=== PATIENT | male | born 1965 | race Caucasian/White ===

== ENCOUNTER 2016-11-21 09:58 | Inpatient (IN) | payer SELFPAY ==
--- NOTE | 2016-11-22 13:14 | CPEKG ---
Heart Rate: 67 RR Interval: 896 QRSD Interval: 88 QT Interval: 384 QTC Interval: 406 QRS [place]: 98 T Wave [place]: 25 EKG Severity - ABNORMAL ECG - EKG Impression: ATRIAL FIBRILLATION, V-RATE 63-75 EKG Impression: BORDERLINE RIGHT AXIS DEVIATION EKG Impression: ATRIAL FIBRILLATION IS NEW IN COMPARISON TO PRIOR ECG Electronically Signed By: Eddie Heard 25-Nov-2016 08:53:00
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
[2016-11-22 13:50] LABS: INR 1.4 (0.83-1.16); PROTIME(PATIENT) 17.1 SEC (12.0-15.0)
[2016-11-22 13:51] LABS: APTT 41.6 SEC (23.0-38.0)
[2016-11-22 13:52] LABS: ANION GAP 8 mEq/L (8-16); CALCIUM 9.1 mg/dL (8.5-10.4); CARBON DIOXIDE 24 mEq/l (22-31); CHLORIDE 106 mEq/L (97-110); GLOMERULAR FILTRATION RATE > 60; GLUCOSE 83 mg/dL (70-100); MAGNESIUM 1.9 mg/dL (1.6-2.3); SODIUM 138 mEq/L (134-144)
[2016-11-22] MEDS: SOTALOL HCL 80 MG TAB PO SCH (14:02)
[2016-11-22 14:06] LABS: % IMMATURE GRANULYOCYTES 0.4 % (0.0-1.1); ABSOLUTE IMMATURE GRANULOCYTES 0.03 10^3/uL (0.00-0.10); ADD DIFF? NO; ADD MORPH? NO; ADD SCAN? NO; ATYPICAL LYMPHOCYTE FLAG 10 (0-99); FRAGMENT RBC FLAG 0 (0-99); HEMATOCRIT 43.7 % (40.0-51.0); HEMOGLOBIN 16.3 g/dL (13.7-17.5); LEFT SHIFT FLG 0 (0-99); LIPEMIA HEMOLYSIS FLAG 90 (0-99); MEAN CELL HEMOGLOBIN 33.1 pg (27.9-34.1); MEAN CELL HEMOGLOBIN CONCENTR. 37.3 g/dL (32.4-36.7); MEAN CELL VOLUME 88.6 fL (81.5-99.8); MEAN PLATELET VOLUME 9.9 fL (8.7-11.7); PLATELET CLUMPS FLAG 20 (0-99); PLATELET COUNT 211 10^3/uL (150-400); RED BLOOD CELL COUNT 4.93 10^6/uL (4.40-6.38); RED CELL DISTRIBUTION WIDTH 11.8 % (11.5-15.2)
--- NOTE | 2016-11-22 16:03 | CPEKG ---
Heart Rate: 79 RR Interval: 759 QRSD Interval: 86 QT Interval: 388 QTC Interval: 445 QRS [place]: 91 T Wave [place]: -5 EKG Severity - ABNORMAL ECG - EKG Impression: ATRIAL FIBRILLATION, V-RATE 64-92 EKG Impression: BORDERLINE RIGHT AXIS DEVIATION EKG Impression: BORDERLINE T ABNORMALITIES, INFERIOR LEADS Electronically Signed By: Eddie Heard 25-Nov-2016 08:53:31
[2016-11-22] MEDS: DABIGATRAN ETEXILATE MESYL 150 MG CAP PO SCH (19:57)
[2016-11-22] MEDS: LORazepam 1 MG TAB PO PRN (20:56)
[2016-11-23] MEDS ORDERED: SOTALOL HCL 80 MG TAB PO ONE ×2 (00:01→20:00)
--- NOTE | 2016-11-23 02:02 | CPEKG ---
Heart Rate: 60 RR Interval: 1000 QRSD Interval: 84 QT Interval: 392 QTC Interval: 392 QRS [place]: 89 T Wave [place]: 34 EKG Severity - ABNORMAL ECG - EKG Impression: ATRIAL FIBRILLATION, V-RATE 48-82 Electronically Signed By: Eddie Heard 25-Nov-2016 08:53:25
[2016-11-23 05:00] LABS: INR 1.29 (0.83-1.16); PROTIME(PATIENT) 16.1 SEC (12.0-15.0)
[2016-11-23 05:01] LABS: APTT 40.4 SEC (23.0-38.0)
[2016-11-23 05:18] LABS: ANION GAP 6 mEq/L (8-16); CALCIUM 9.6 mg/dL (8.5-10.4); CARBON DIOXIDE 28 mEq/l (22-31); CHLORIDE 105 mEq/L (97-110); CREATININE 1.1 mg/dL (0.7-1.3); GLOMERULAR FILTRATION RATE > 60; GLUCOSE 78 mg/dL (70-100); MAGNESIUM 2.1 mg/dL (1.6-2.3); POTASSIUM 4.4 mEq/L (3.5-5.2); SODIUM 139 mEq/L (134-144)
[2016-11-23] MEDS ORDERED: ATROPINE SULFATE 1 MG/10 ML SYR IVP ONE (06:00)
[2016-11-23] MEDS ORDERED: FLU VACC QS 2017-18 (3YR+)/PF 0.5 ML SYR (FLUARIX QUAD) IM ONE (07:56)
--- NOTE | 2016-11-23 08:56 | CPEKG ---
Heart Rate: 65 RR Interval: 923 QRSD Interval: 86 QT Interval: 416 QTC Interval: 433 QRS [place]: 92 T Wave [place]: 72 EKG Severity - ABNORMAL ECG - EKG Impression: ATRIAL FIBRILLATION, V-RATE 52-79 EKG Impression: BORDERLINE RIGHT AXIS DEVIATION Electronically Signed By: Eddie Heard 25-Nov-2016 08:53:18
[2016-11-23] MEDS: OMEGA-3 FATTY ACIDS 1,000 MG CAP PO SCH (09:35)
[2016-11-23] MEDS: DABIGATRAN ETEXILATE MESYL 150 MG CAP PO SCH ×2 (09:35→19:56)
[2016-11-23] MEDS: SOTALOL HCL 80 MG TAB PO SCH (09:36)
[2016-11-23] MEDS ORDERED: SUCCINYLCHOLINE CHLORIDE*ANESTHESIA ONLY*200 MG/10 ML SYR IVP ONE (12:10)
[2016-11-23] MEDS ORDERED: LIDOCAINE 2% 100 MG/5 ML SYR ONE (12:10)
[2016-11-23] MEDS ORDERED: PROPOFOL 200 MG/20 ML VIAL ONE (12:10)
--- NOTE | 2016-11-23 12:26 | CPEKG ---
Heart Rate: 77 RR Interval: 779 QRSD Interval: 84 QT Interval: 428 QTC Interval: 485 QRS [place]: 84 T Wave [place]: 7 EKG Severity - ABNORMAL ECG - EKG Impression: ATRIAL FIBRILLATION, V-RATE 59-109 EKG Impression: BORDERLINE PROLONGED QT INTERVAL Electronically Signed By: Ann Hernandez 24-Nov-2016 06:50:46
[2016-11-23] MEDS ORDERED: NALOXONE HCL 0.4 MG/ML INJ IVP PRN (12:28)
[2016-11-23] MEDS ORDERED: fentaNYL 100 MCG/2 ML INJ IVP PRN (12:28)
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
--- NOTE | 2016-11-23 12:29 | POSTANESTH ---
Post Anesthetic Evaluation Cardiovascular Status: Normal, Stable Respiratory Status: Normal, Stable Level of Consciousness/Mental Status: Can Participate in Eval Pain Control: Adequate, Prn Tx Ordered Nausea/Vomiting Control: Adequate, Prn Tx Ordered Complications Possibly Related to Anesthesia: None Noted (still in a-fib will repeat CV tomorrow)
--- NOTE | 2016-11-23 13:04 | EPPROC ---
Electrophysiology Procedure Note: Procedure: CV Indicaiton: Symptomatic AF Procedure: Pt sedated by anesthesiologist. Once sedated 200J of synchronized DCCV given. Pt did not convert. Patch repositioned. 200J of synchronized DCCV given. Pt converted to SR. Within 3 min he converted to AF Conclusion: Successful CV but pt went back into AF in three min. Patient Problems: Problems Problem Status Onset Atrial fibrillation Acute Fracture of rib of left side Acute
--- NOTE | 2016-11-23 15:37 | ASMTCASEMG ---
Living Arrangements What is your living Answers: With Spouse arrangement? Who do you live with? Type Of Residence What kind of residence do Answers: House you live in? Discharge Plan Comments Coordination Status Comments Notes: Chart reviewed and spoke w/ CASSIE [place]. Pt is a 51 y/o man admitted for AFIB and sotalol loading. Pt will most likely d/c independent when he is medically stable. No therapies ordered at this time. CM available for changes. Date Signed: 11/23/2016 03:36 PM Electronically Signed By:ABDIAZIZ Hu
[2016-11-23] MEDS: LORazepam 1 MG TAB PO PRN (21:27)
--- NOTE | 2016-11-24 00:23 | CPEKG ---
Heart Rate: 92 RR Interval: 652 QRSD Interval: 86 QT Interval: 400 QTC Interval: 495 QRS [place]: 80 T Wave [place]: 9 EKG Severity - ABNORMAL ECG - EKG Impression: ATRIAL FIBRILLATION, V-RATE 68-120 EKG Impression: BORDERLINE PROLONGED QT INTERVAL Electronically Signed By: Eddie Heard 25-Nov-2016 08:53:12
[2016-11-24] MEDS ORDERED: SOTALOL HCL 80 MG TAB PO ONE (04:00)
[2016-11-24 05:04] VITALS: O2SAT 96
[2016-11-24] MEDS ORDERED: SOTALOL HCL 80 MG TAB ONE (06:09)
--- NOTE | 2016-11-24 07:44 | CPEKG ---
Heart Rate: 69 RR Interval: 870 QRSD Interval: 84 QT Interval: 424 QTC Interval: 455 QRS [place]: 94 T Wave [place]: 18 EKG Severity - ABNORMAL ECG - EKG Impression: ATRIAL FIBRILLATION, V-RATE 50-82 EKG Impression: BORDERLINE RIGHT AXIS DEVIATION Electronically Signed By: Eddie Heard 25-Nov-2016 08:53:07
[2016-11-24] MEDS: DABIGATRAN ETEXILATE MESYL 150 MG CAP PO SCH (07:51)
[2016-11-24] MEDS ORDERED: PROPOFOL 200 MG/20 ML VIAL ONE ×2 (07:57)
[2016-11-24] MEDS ORDERED: SUCCINYLCHOLINE CHLORIDE*ANESTHESIA ONLY*200 MG/10 ML SYR IVP ONE (07:57)
[2016-11-24] MEDS ORDERED: LIDOCAINE 2% 100 MG/5 ML SYR ONE (07:57)
[2016-11-24 07:59] VITALS: BP 99/66; PULSE 71; RESP 13; TEMP 98.7
[2016-11-24] MEDS ORDERED: NS 500 ML IV ONE (08:00)
[2016-11-24] MEDS ORDERED: ATROPINE SULFATE 1 MG/10 ML SYR IVP ONE (08:00)
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
--- NOTE | 2016-11-24 08:23 | POSTANESTH ---
Post Anesthetic Evaluation Cardiovascular Status: Normal, Stable Respiratory Status: Normal, Stable Level of Consciousness/Mental Status: Can Participate in Eval Pain Control: Adequate, Prn Tx Ordered Nausea/Vomiting Control: Adequate, Prn Tx Ordered Complications Possibly Related to Anesthesia: None Noted
[2016-11-24] MEDS ORDERED: fentaNYL 100 MCG/2 ML INJ IVP PRN (08:24)
[2016-11-24] MEDS ORDERED: NALOXONE HCL 0.4 MG/ML INJ IVP PRN (08:24)
[2016-11-24] MEDS: OMEGA-3 FATTY ACIDS 1,000 MG CAP PO SCH (09:59)
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
--- NOTE | 2016-11-25 12:34 | ASDISCHSUM ---
Discharge Information Plan Status:Home with No Needs Medically Cleared to Leave:11/24/2016 Discharge Date:11/24/2016 09:57 AM CM D/C Disposition: ADT D/C Disposition:Home, Routine, Self-Care Projected Discharge Date:11/24/2016 12:00 AM Transportation at D/C: Discharge Delay Reason: Follow-Up Date:11/24/2016 12:00 AM Discharge Slot: Final Diagnosis: Placement Information Patient Contact Information Contact Name:NELY Relationship: Address:[address] City:[place] Alternate Phone: [facility]/Zip Code:[place] [address] Email: Financial Information Financial Class:Self-Pay Primary Plan Desc:SELF PAY Primary Plan Number: Secondary Plan Desc: Secondary Plan Number: Assessment Information [facility] Initial CM Assessment Living Arrangements What is your living Answers: With Spouse arrangement? Who do you live with? Type Of Residence What kind of residence do Answers: House you live in? Discharge Plan Comments Coordination Status Comments Notes: Chart reviewed and spoke lety [place] RN. Pt is a 51 y/o man admitted for AFIB and sotalol loading. Pt will most likely d/c independent when he is medically stable. No therapies ordered at this time. CM available for changes. Date Signed: 11/23/2016 03:36 PM Electronically Signed By:ABDIAZIZ Hu Intervention Information
== END 2016-11-24 09:57 | disposition home or self-care (01) | DRG 310 ==
LOC: F2W 11-22 12:16
PROVIDERS: ADMIT Internal Medicine Cardiovascular Disease; ATTEND Internal Medicine Cardiovascular Disease
PROC: 5A2204Z Restoration of Cardiac Rhythm, Single (ICD-10-PCS; principal; 2016-11-23)
PROC: 5A2204Z Restoration of Cardiac Rhythm, Single (ICD-10-PCS; 2016-11-24)
DX: I48.1 Persistent atrial fibrillation (principal); I51.3 Intracardiac thrombosis, not elsewhere classified; Z79.01 Long term (current) use of anticoagulants; Z87.820 Personal history of traumatic brain injury; Z23 Encounter for immunization
CPT/HCPCS: G0008; J0330; J0461; J2001; J2704